=== PATIENT | male | born 1930 | race Caucasian/White ===

== ENCOUNTER 2019-11-05 10:22 | Day surgery (SDC) | payer MEDICARE, BC ==
[~2019-11-05] VITALS: Ht 180.3 cm; Wt 76.7 kg
[2019-11-05 11:00] VITALS: BP 169/81
[2019-11-05] MEDS ORDERED: ceFAZolin 2gm in dextrose, iso 50 ML IV ONE (11:10)
[2019-11-05] MEDS ORDERED: normal saline 1000ml 1,000 ML IV SCH (11:15)
[2019-11-05] MEDS ORDERED: OSC500T PO (11:45)
[2019-11-05] MEDS ORDERED: OMEG1CAP13 PO (11:45)
[2019-11-05] MEDS ORDERED: MESA800T9 PO (11:45)
[2019-11-05] MEDS ORDERED: MULT-1085 PO (11:45)
[2019-11-05] MEDS ORDERED: ASCO100T12 PO (11:45)
[2019-11-05] MEDS ORDERED: RIVA15TA PO (11:45)
[2019-11-05 11:50] LABS: BASOPHILS % (AUTO) 0.7 % (0-1); EOSINOPHILS # (AUTO) 0.1 X10'3 (0-0.9); EOSINOPHILS % (AUTO) 1.1 % (0-6); HEMATOCRIT 39.2 % (42.0-52.0); HEMOGLOBIN 12.9 g/dl (14.0-17.9); LYMPHOCYTES # (AUTO) 1.6 X10'3 (1.1-4.8); LYMPHOCYTES % (AUTO) 25.2 % (21-51); MEAN CORPUSCULAR HEMOGLOBIN 29.8 PG (27.0-31.0); MEAN CORPUSCULAR HGB CONC 32.9 g/dL (33.0-36.5); MEAN CORPUSCULAR VOLUME 90.6 FL (78-98); MEAN PLATELET VOLUME 7.9 FL (7.4-10.4); MONOCYTES # (AUTO) 0.4 X10'3 (0-0.9); MONOCYTES % (AUTO) 6.6 % (2-12); NEUTROPHILS # (AUTO) 4.1 X10'3 (1.8-7.7); NEUTROPHILS % (AUTO) 66.4 % (42-75); PLATELET COUNT 207 X10'3 (140-440); RED BLOOD COUNT 4.33 X10'6 (4.70-6.10); WHITE BLOOD COUNT 6.2 X10'3 (4.5-11.0)
[2019-11-05 11:55] LABS: ALBUMIN 3.5 G/DL (3.4-5.0); ANION GAP 5 (8-16); BLOOD UREA NITROGEN 36 MG/DL (7-18); BUN/CREATININE RATIO 23.5 (5.4-32.0); CALCIUM 9.6 MG/DL (8.5-10.1); CHLORIDE 106 MMOL/L (99-107); CREATININE 1.53 MG/DL (0.60-1.10); GLUCOSE 99 MG/DL (70-104); MAGNESIUM 1.9 MG/DL (1.5-2.4); POTASSIUM 4.4 MMOL/L (3.5-5.1); SODIUM 142 MMOL/L (135-145); eGFR 43 ML/MIN
[2019-11-05 12:11] LABS: PLATELET ESTIMATE NORMAL
[2019-11-05 12:12] LABS: ANISOCYTOSIS 2+; ELLIPTOCYTES 1+; POIKILOCYTOSIS FEW; ROULEAUX 1+
[2019-11-05] MEDS ORDERED: LIDOcaine 1% W/epiNEPHrine 1:100,000 20ml vial ONE (13:57)
[2019-11-05] MEDS ORDERED: fentaNYL/PF 50MCG/1 ML 2ML syringe ONE ×2 (13:57→14:49)
[2019-11-05] MEDS ORDERED: midazolam 2 mg/2 ml injection ONE ×2 (13:57→14:28)
[2019-11-05] MEDS ORDERED: proCHLORperazine 10 MG/2 ml inj ONE (13:57)
[2019-11-05 15:34] VITALS: BP 129/67
[2019-11-05 15:41] VITALS: BP 123/57
[2019-11-05] MEDS ORDERED: HYDROcodone/acetaminophen 5mg/325mg tablet PO PRN (15:45)
[2019-11-05] MEDS ORDERED: HYDROcodone/acetaminophen 10/325mg tab PO PRN (15:45)
[2019-11-05 15:56] VITALS: BP 112/52
[2019-11-05 16:11] VITALS: BP 132/46
[2019-11-05 16:25] VITALS: BP 132/60
== END 2019-11-05 17:10 | disposition home or self-care (01) ==
LOC: SSTAY O 10:22
PROVIDERS: ATTEND Internal Medicine Cardiovascular Disease
DX: I48.19 Other persistent atrial fibrillation (principal); I35.0 Nonrheumatic aortic (valve) stenosis; I27.20 Pulmonary hypertension, unspecified; I47.2 Ventricular tachycardia; Z88.8 Allergy status to other drugs, medicaments and biological substances; I45.10 Unspecified right bundle-branch block; Z79.899 Other long term (current) drug therapy
CPT/HCPCS: 33207; 36415; 71045; 80048; 83735; 85025; 85610; 93005; 99152; 99153; C1786; C1894; C1898; J0780; J2250; J3010; 85008; A4620; A6258